=== PATIENT | male | born 1960 | race Caucasian/White ===

== ENCOUNTER 2018-12-31 21:03 | Emergency (ER) | payer BC, OTHER ==
[~2018-12-31] VITALS: Ht 180 cm; Wt 75.5 kg
[2018-12-31] MEDS ORDERED: LORATADINE (CLARITIN) 10 MG TAB PO STA (22:40)
--- NOTE | 2018-12-31 22:46 | ED EENT ---
History of Present Illness General Chief Complaint: Nasal Problems Stated Complaint: [facility] Nursing Triage Note: PT AMBULATE TO ROOM FS02 WITH C/O NOSE BLEEN STARTING AT APPROX 1950 TODAY. PT STATES HE HAS BEEN HAVING FREQUENT NOSE BLEEDS SINCE SATURDAY THAT WOULD STOP AFTER APPROX 20-30 MINS. PT STATES THIS NOSE BLEED WILL NOT STOP. Source: patient History of Present Illness Date Seen by Provider: Dec 31, 2018 Time Seen by Provider: 22:18 Initial Comments 58-year-old male presenting with concern about frequent nosebleeds in the last 3 or 4 days. Tonight he was unable to get the bleeding stopped for almost 45 minutes. He has been using a nasal steroid spray but he cut back on that was using just a nasal saline spray to help keep his sinuses moist. He still takes a baby aspirin daily. He does not take anything by mouth for allergies. He denies any pain or trauma to his nose. He has had some congestion and allergy symptoms. Allergies and Home Medications Allergies Coded Allergies: No Known Drug Allergies (Unverified , 12/31/18) Patient Home Medication List Home Medication List Reviewed: Yes Review of Systems Review of Systems Constitutional: No chills, No fever Eyes: No Symptoms Reported Ears: No Symptoms Reported Nose: see HPI Mouth: no symptoms reported Throat: no symptoms reported Respiratory: no symptoms reported Cardiovascular: no symptoms reported Gastrointestinal: no symptoms reported Musculoskeletal: no symptoms reported Past Oslodnq-Kjbkrm-Raciwd Hx Past Med/Social Hx: Reviewed Nursing Past Med/Soc Hx Patient Social History Alcohol Use: Regular Use Alcohol Beverage of Choice: Beer, Whiskey Recreational Drug Use: No Smoking Status: Never a Smoker 2nd Hand Smoke Exposure: No Recent Foreign Travel: No Contact w/Someone Who Travel: No Recent Infectious Disease Expo: No Recent Hopitalizations: No Physical Abuse: No Sexual Abuse: No Mistreated: No Fear: No Seasonal Allergies Seasonal Allergies: Yes Past Medical History Surgeries: Yes Appendectomy Respiratory: No Cardiac: Yes (RAYNAUDS DISEASE) Hypertension Neurological: No Genitourinary: No Gastrointestinal: No Musculoskeletal: No Endocrine: No HEENT: Yes (SCRATCH TO CORNEA) Eye Injury Cancer: No Psychosocial: No Integumentary: No Blood Disorders: No Physical Exam Vital Signs Vital Signs - First Documented 12/31/18 12/31/18 21:27 22:57 Temp 36.5 Pulse 73 Resp 17 B/P (MAP) 134/83 (100) Pulse Ox 99 O2 Delivery Room Air Height, Weight, BMI Height: '" Weight: lbs. oz. kg; 23.00 BMI Method: General Appearance: WD/WN, no apparent distress Eyes: bilateral eye normal inspection, bilateral eye PERRL, bilateral eye EOMI Nose: No active bleeding; dried blood (irritation and some clotted blood to the anterior septum on the left side. No active bleeding noted.) Mouth/Throat: normal mouth inspection, pharynx normal Neck: non-tender, full range of motion, supple, normal inspection Cardiovascular: normal peripheral pulses, regular rate, rhythm Respiratory: chest non-tender, lungs clear, normal breath sounds, no respiratory distress, no accessory muscle use Gastrointestinal: normal bowel sounds, non tender, soft, no pulsatile mass Neurologic/Psychiatric: rn vascular II-XII nml as tested, no motor/sensory deficits, alert, normal mood/affect, oriented x 3 Skin: normal color, warm/dry Progress/Results/Core Measures Results/Orders My Orders Orders - WALLACE ABRAHAM MD Loratadine Tablet (Claritin Tablet) (12/31/18 22:40) Vital Signs/I&O 12/31/18 12/31/18 21:27 22:57 Temp 36.5 Pulse 73 73 Resp 17 18 B/P (MAP) 134/83 (100) 134/80 Pulse Ox 99 O2 Delivery Room Air Room Air Blood Pressure Mean: 100 Progress Progress Note : Progress Note Reassured patient that the pain has saw. Counseled that I could do a silver nitrate cautery to the area that looks like it recently bled. Having this done also might start him to have more bleeding. The alternative treatment would be using symptomatic treatment. Increase hydration to his nose with the saline rinses as well as trying a petroleum product such as triple antibiotic or Vaseline to help keep his nose moist. These a humidifier or vaporizer at the bedside. If having continued issues he may also need to see a research leader such as Dr. Reyes. Departure Impression Primary Impression: Epistaxis Disposition: 01 HOME, SELF-CARE Condition: Stable Departure-Patient Inst. Decision time for Depature: 22:42 Referrals: SELFRANJIT MD (PCP) Primary Care Physician CLAUDIA REYES MD Patient Instructions: Nosebleeds (DC), Seasonal Allergies (DC) Add. Discharge Instructions: Stay well hydrated and use a humidifier or vaporizer at the bedside when sleeping. Use the nasal saline rinse to help keep your nose and sinuses moist You could use a Q-tip to gently apply a small amount of antibiotic ointment or vaseline in your nose to help keep it moist and help it heal. If you have more bleeding hold pressure for a solid 5 to 10 minutes and suck on ice chips/cubes as well as place a ice pack across the bridge of your nose to help the blood vessels constrict and stop bleeding. Hold your aspirin for the next 5-7 days to let your nose heal and stop bleeding Check with Dr. Reyes if having continued problems with bleeding. All discharge instructions reviewed with patient and/or family. Voiced understanding. WALLACE ABRAHAM MD Dec 31, 2018 22:46
[2018-12-31 22:57] VITALS: BP 134/80
== END 2018-12-31 22:55 | disposition home or self-care (01) ==
LOC: ER FS 21:07
DX: R04.0 Epistaxis (principal); I10 Essential (primary) hypertension; Z79.82 Long term (current) use of aspirin; Z90.49 Acquired absence of other specified parts of digestive tract
CPT/HCPCS: 99283